=== PATIENT | male | born 1995 | race African-American/Black ===

== ENCOUNTER 2018-01-29 14:56 | Emergency (ER) | payer SELFPAY ==
[2018-01-29 16:40] LABS: ADD MAN DIFF? NO
[2018-01-29 16:49] LABS: WHITE BLOOD COUNT 12.5 10^3/ul (4.8-10.8)
[2018-01-29 16:49] LABS: BASOPHILS % 0.3 % (0.0-2.0); EOSINOPHILS # 0.1 10^3/ul (0.0-0.5); HEMATOCRIT 39.4 % (42.0-52.0); HEMOGLOBIN 12.6 g/dl (14.0-18.0); LYMPHOCYTES # 1.8 10^3/ul (0.8-2.9); MEAN CORPUSCULAR VOLUME 81.4 fl (82.0-101.0); MEAN PLATELET VOLUME 9.7 fl (7.4-10.4); MONOCYTE # 0.6 10^3/ul (0.3-0.9); MONOCYTES % 4.5 % (0.0-11.0); NEUTROPHILS % 79.7 % (39.0-77.0); PLATELET COUNT 226 10^3/UL (140-415); RED BLOOD COUNT 4.84 10^6/ul (4.70-6.10); RED CELL DISTRIBUTION WIDTH 14.2 % (11.5-14.5)
[2018-01-29 17:05] LABS: ANION GAP 9 (5-13); BLOOD UREA NITROGEN 12 mg/dl (7-20); CALCIUM 9.3 mg/dl (8.4-10.2); CARBON DIOXIDE 29 mmol/L (21-31); CHLORIDE 104 mmol/L (97-110); CREATININE 0.76 mg/dl (0.61-1.24); Estimated GFR > 60 mL/min (>60); GLUCOSE 111 mg/dl (70-220); POTASSIUM 4.7 mmol/L (3.5-5.1); SODIUM 142 mmol/L (135-144)
[2018-01-29 17:10] LABS: ETHANOL < 10.0 mg/dl
[2018-01-29] MEDS: DIPHTH/TET/ACEL PERTUSS (ADULT) 0.5 ML VIAL IM* (17:13)
[2018-01-29 17:16] LABS: TROPONIN-I < 0.012 ng/ml (0.000-0.120)
[2018-01-29 17:34] LABS: INR 0.92; PROTIME 12.4 Sec (11.9-14.9)
[2018-01-29 17:35] LABS: PARTIAL THROMBOPLASTIN TIME 35.5 Sec (23.0-35.0)
[2018-01-29] MEDS: ALPRAZOLAM 1 MG TAB PO (17:47)
[2018-01-29 17:51] LABS: AMPHETAMINE/METHAMPHETAMINE Negative (NEGATIVE); BARBITURATES Negative (NEGATIVE); BENZODIAZEPINES Negative (NEGATIVE); CANNABINOIDS Positive (NEGATIVE); COCAINE Negative (NEGATIVE); OPIATES Negative (NEGATIVE)
== END 2018-01-29 18:04 | disposition home or self-care (01) ==
LOC: E/R 14:56
DX: S01.01XA Laceration without foreign body of scalp, initial encounter (principal); F13.939 Sedative, hypnotic or anxiolytic use, unspecified with withdrawal, unspecified; D64.9 Anemia, unspecified; R55 Syncope and collapse; X58.XXXA Exposure to other specified factors, initial encounter; Y92.9 Unspecified place or not applicable; Z23 Encounter for immunization
CPT/HCPCS: 12001; 70450; 71045; 72125; 80048; 80307; 84484; 85025; 85610; 85730; 90471; 90715; 93005; 99285-25